=== PATIENT | female | born 1960 | race Caucasian/White ===

== ENCOUNTER → 2019-03-20 10:56 | Outpatient (CLI) | payer OTHER ==
[2019-03-20 11:54] LABS: T4 THYROXIN - FREE 0.96 ng/dL (0.76-1.46); THYROID STIMULATING HORMONE 1.97 uIU/mL (0.36-3.74)
== END | disposition home or self-care (01) ==
LOC: D.LAB 10:56
DX: E07.9 Disorder of thyroid, unspecified (principal)